=== PATIENT | male | born 1970 | race Caucasian/White ===

== ENCOUNTER → 2019-03-03 | Outpatient (CLI) | payer BC ==
--- NOTE | 2019-03-03 15:29 | XR ---
Right forearm HISTORY: Trauma and pain 2 views the right forearm There is postop change suspected the level of the radial tuberosity likely due to biceps tendon attac hment, correlate for appropriate surgical history, metallic anchor is present. Bone mineralization is otherwise maintained, alignment is normal. No dislocation. No evident elbow joint effusion. IMPRESSION: Postop changes as described, no fracture or dislocation.
== END | disposition home or self-care (01) ==
LOC: RADXRMAIN 11:07
PROVIDERS: ATTEND Physician Assistant
DX: S59.911A Unspecified injury of right forearm, initial encounter (principal); Z98.890 Other specified postprocedural states